=== PATIENT | male | born 1960 | race Caucasian/White ===

== ENCOUNTER 2020-09-06 11:36 | Emergency (ER) | payer OTHER, SELFPAY ==
[2020-09-06] VITALS (10 sets, daily range): BP systolic 142–194; BP diastolic 78–124; PULSE 59–84; RESP 17–29; TEMP 36.7; O2SAT 95–100
--- NOTE | ~2020-09-06 | CT_ITS ---
EXAMINATION: CT abdomen pelvis wo con EXAM DATE: 09/06/2020 12:46 INDICATION: Left flank pain, difficulty urinating. TECHNIQUE: Spiral CT of the abdomen and pelvis was performed without contrast. Axial, coronal and sag ittal images were reviewed. The dose-length product (DLP) for this examination was 1649.14 mGy-cm. The exposure was tailored according to patient size (auto mA exposure control), and iterative reconst ruction (ASIR) was used as additional dose reduction technique. Comparison is made to prior examinati on from 12/16/2018. FINDINGS: There is mild left perinephric fat stranding and hydroureteronephrosis, but no obstructing stone identified. Differential diagnosis includes a recently passed ureteral stone, or upper urinary tract infection. Several punctate bilateral nonobstructing calyceal stones. The prostate is unremark able. Small to moderate left, small right inguinal fat-containing hernias. The bladder is unremarkab le. The liver, spleen, adrenal glands and pancreas are unremarkable. Gallbladder is unremarkable. No biliary obstruction. There is no retroperitoneal or pelvic lymphadenopathy. There is mild scatt ered arteriosclerotic disease. Small umbilical fat-containing hernia. The appendix is normal. There is mild sigmoid colonic diverticulosis. There is no adjacent inflammat ory change to suggest diverticulitis. The stomach and small bowel are unremarkable. There is expecte d amount of colonic stool. No free intraperitoneal gas. Heart is upper limits of normal in size. The lung bases are unremarkable. There are no osteoblastic or osteolytic lesions identified. IMPRESSION: 1. Mild left hydroureteronephrosis and perinephric fat stranding without obstructing stone. Consider a recently passed stone or upper urinary tract infection. Correlate with urinalysis. Have symptoms r esolved? 2. Punctate bilateral calyceal stones. 3. Small fat-containing hernias. 4. Mild sigmoid diverticulosis. Reviewed, dictated and finalized at location A. IMPRESSION: 1. Mild left hydroureteronephrosis and perinephric fat stranding without obstr ucting stone. Consider a recently passed stone or upper urinary tract infection . Correlate with urinalysis. Have symptoms resolved? 2. Punctate bilateral calyceal stones. 3. Small fat-containing hernias. 4. Mild sigmoid diverticulosis.
--- NOTE | ~2020-09-06 | XR_ITS ---
EXAMINATION: XR abdomen/kub 1V EXAM DATE: 09/06/2020 12:51 INDICATION: left flank pain. TECHNIQUE: Frontal projection of the upper abdomen, frontal projection lower abdomen/pelvis for inter pretation. There is no prior study for comparison. FINDINGS: Can't identify the punctate bilateral calyceal stone seen on CT. Nonobstructive bowel gas p attern. There are bony degenerative changes. IMPRESSION: Unremarkable XR abdomen/kub 1V exam. Reviewed, dictated and finalized at location A.
[2020-09-06 12:07] LABS: Basophils Absolute Auto 0.1 K/mm3 (0.0-0.1); Basophils Percent Auto 0.8 % (0.2-1.2); Eosinophils Absolute Auto 0.2 K/mm3 (0-0.3); Hematocrit 45.7 % (42.0-52.0); Hemoglobin 15.9 g/dL (14.0-18.0); Immature Granulocyte Absolute 0.01 K/mm3 (0.00-0.031); Immature Granulocyte Percent A 0.1 % (0-0.5); Lymphocytes Absolute Auto 2.84 K/mm3 (0.9-3.2); Lymphocytes Percent Auto 32.2 % (18.3-44.2); Mean Corpuscular HGB Conc 34.8 g/dl (32-36); Mean Corpuscular Volume 86.2 fl (80-100); Mean Platelet Volume 10.7 fl (7.4-10.4); Monocytes Absolute Auto 0.7 K/mm3 (0.1-0.6); Monocytes Percent Auto 7.5 % (2.6-8.5); Neutrophils Absolute Auto 5.1 K/mm3 (1.3-6.7); Neutrophils Percent Auto 57.4 % (45.5-73.1); Platelet Count Result 280 k/mm3 (150-375); Red Cell Distribution Width 13.5 % (11.5-14.5); White Blood Count 8.8 K/mm3 (4.5-10.0)
[2020-09-06 12:11] LABS: Add Urine Microscopic? YES; Appearance Urine Cloudy (Clear); Bilirubin Urine Negative (Negative); Blood Urine 3+ (Negative); Color Urine Yellow (Yellow); Glucose Urine UA Negative (Negative); Ketones Urine Negative (Negative); Leukocyte Esterase Ur Negative LEU/UL (Negative); Mucus Urine Rare /lpf; Nitrate Urine Negative (Negative); Protein Urine 2+ mg/dL (Negative); Specific Grav Ur 1.019 (1.001-1.035); Squamous Epithelial Cell Urine Rare /hpf (Few); Urobilinogen Urine Negative mg/dL (<2.0); WBC Urine 0-3 /hpf
--- NOTE | 2020-09-06 12:15 | ED.ABDPAIN ---
HPI - Abdominal Pain General Chief Complaint: Abdominal Pain Stated Complaint: left flank pain into left groin Time Seen by Provider: 09/06/20 11:55 Source: patient Mode of arrival: ambulatory Limitations: no limitations History of Present Illness HPI narrative: This is a 59 year old obese male with history of hypertension who presents for evaluation of left lower abdominal pain. He woke up this morning with pain to his left groin at 8 am. This pain has been constant and it has gradually worsened. He reports severe pain to left groin, left abdomen and left lower back. He has not taken anything for pain. He has associated nausea, vomiting and restlessness. His pain is 10/10 and he can not get comfortable. He denies history of kidney stones Related Data Home Medications Medication Instructions Recorded Confirmed [id number]-[id number]-lutein 1 tablet PO DAILY 05/17/19 09/06/20 [Centrum Silver Men] psyllium seed (sugar) [Metamucil 1 tsp PO DAILY 05/17/19 09/06/20 (sugar)] Allergies Allergy/AdvReac Type Severity Reaction Status Date / Time codeine [Guaifen-C] Allergy Unknown hyperactive Verified 05/26/19 09:06 metoprolol Allergy Unknown leg cramps Verified 05/26/19 09:06 phenylephrine Allergy Unknown Verified 05/26/19 09:06 phenylpropanolamine Allergy Unknown Verified 05/26/19 09:06 pseudoephedrine [Entex T] Allergy Unknown hyperactive Verified 05/26/19 09:06 hydrocodone AdvReac Intermediate Nausea and Verified 05/26/19 09:06 Vomiting oxycodone AdvReac Intermediate Nausea and Verified 05/26/19 09:06 Vomiting SYMPATHOMIMETIC AGENTS Allergy Unknown Uncoded 12/16/18 17:28 Review of Systems Review of Systems: All systems reviewed & are unremarkable except as noted in HPI and below Constitutional: Constitutional: Denies chills and Denies fever(s) Gastrointestinal: Gastrointestinal: Reports abdominal pain, Reports nausea and Reports vomiting Genitourinary: Genitourinary: Reports hematuria Musculoskeletal: Musculoskeletal: Reports back pain [facility] Past Medical History Medical History HTN (hypertension) Morbid obesity CHUCKY (obstructive sleep apnea) Surgical History Surgical History History of total knee arthroplasty Family History Family History Mother Family history of lung cancer, Onset Age: 62 Other Hypertension Social History Social History Alcohol intake: never Gender identity (if verbalized by the patient): Male Exam Const: General: alert Orientation/consciousness: patient oriented x3 Other: diaphoretic, restless Eyes: EOM: EOMs intact bilaterally Chest: Chest palpation & inspection: normal inspection of the chest Resp: Effort & Inspection: normal respiratory effort and no retractions Auscultation: clear to auscultation bilaterally Cardio: Rate: regular rate Rhythm: regular rhythm Heart sounds: no murmurs GI: GI Palp: Yes Soft to palpation, Yes Tenderness to palpation present (GI) (LUQ, LLQ), No Guarding due to palpation present (GI) and No Rigid due to palpation Auscultation: normal bowel sounds Back/Spine/Pelvis: Back: no CVA tenderness Skin: General skin exam: normal color Other: diaphoretic Neuro: General: patient oriented x3 and moves all extremities Extrem: Other: bilateral pedal pulse Psych: Mental Status: mental status grossly normal Affect: normal affect Course Consultations Consultation #1: I Discussed labs and CT with patient and family in depth. His pain has resolved after toradol. It is likely he passes a kidney stone and continued to have pain due to spasm. Labs are unremarkable. Date: 09/06/20 Time: 14:34 Vital Signs Vital signs: Vital Signs Temperature 98.0 F 09/06/20 11:42
[2020-09-06 12:19] LABS: Anion Gap 11 mmol/L (8-16); Blood Urea Nitrogen 18 mg/dL (9-20); Carbon Dioxide 23 mmol/L (22-30); Chloride 108 mmol/L (98-107); Estimated CRCL calculation 147 ml/min; Estimated Glomerular Filt Rate > 60; Glucose 136 mg/dL (75-110); Potassium 3.9 mmol/L (3.4-5.0); Sodium 142 mmol/L (137-145)
[2020-09-06] MEDS: HYDROmorphone HCL INJ (*CRX) 1 MG/ML SYR IV PUSH (12:19)
[2020-09-06] MEDS: ONDANSETRON INJ 4 MG/2 ML VIAL IV PUSH (12:20)
[2020-09-06 12:27] LABS: Alanine Aminotransferase 74 U/L (4-50); Albumin Level 4.4 g/dL (3.5-5.1); Alkaline Phosphatase 93 U/L (38-126); Aspartate Amino Transferase 55 U/L (17-59); Bilirubin,Total 0.6 mg/dL (0.2-1.3); Lipase 86 U/L (23-300)
[2020-09-06] MEDS: KETOROLAC 30 MG/ML VIAL (*BKC) IV PUSH (13:23)
== END 2020-09-06 14:58 | disposition home or self-care (01) ==
PROVIDERS: Emergency Medicine; Emergency Provider General Practice; PCP Family Medicine
DX: N13.30 Unspecified hydronephrosis (principal); I10 Essential (primary) hypertension; G47.33 Obstructive sleep apnea (adult) (pediatric); E66.01 Morbid (severe) obesity due to excess calories; Z68.43 Body mass index [BMI] 50.0-59.9, adult; K40.90 Unilateral inguinal hernia, without obstruction or gangrene, not specified as recurrent; K57.90 Diverticulosis of intestine, part unspecified, without perforation or abscess without bleeding
CPT/HCPCS: 36415; 74018; 74176; 80048; 80076; 81001; 83690; 85025; 96374; 96375; 99284; J1170; J1885; J2405

== ENCOUNTER → 2021-07-14 00:19 | Outpatient (CLI) | payer OTHER, SELFPAY ==
[2021-07-14 20:22] LABS: SARS-CoV-2 RNA PCR Negative
== END ==
PROVIDERS: PCP Family Medicine; Visit Provider Physician Assistant Medical
DX: R05.9 Cough, unspecified (principal); Z20.822 Contact with and (suspected) exposure to COVID-19
CPT/HCPCS: C9803; U0003; U0005